=== PATIENT | female | born 1985 | race Caucasian/White ===

== ENCOUNTER 2018-09-23 05:51 | Inpatient (IN) | payer BC ==
--- NOTE | 2018-09-20 18:54 | P.HPOB ---
History of Present Illness H&P Date: 09/20/18 Chief Complaint: Repeat section and tubal ligation. This patient is a pleasant 33-year-old 2 para 1 female estimated date of confinement 09/30/2018 estimated gestational age 39 weeks who presents to labor and delivery for elective repeat section and also requesting permanent sterilization. Patient's has been uncomplicated with the exception of large for gestational age. Patient's had a previous section desires repeat. Patient is also requesting permanent sterilization. Review of Systems Genitourinary: Reports Menstruation: Reports amenorrhea Past Medical History Past Medical History: No Reported History History of Any Multi-Drug Resistant Organisms: None Reported Past Surgical History: Section Past Anesthesia/Blood Transfusion Reactions: No Reported Reaction Past Psychological History: No Psychological Hx Reported Smoking Status: Never smoker Past Alcohol Use History: None Reported Past Drug Use History: None Reported Medications and Allergies Home Medications Medication Instructions Recorded Confirmed Type No Known Home Medications 05/16/17 05/16/17 History Allergies Allergy/AdvReac Type Severity Reaction Status Date / Time amoxicillin Allergy Rash/Hives Verified 08/16/18 15:24 sulfamethoxazole Allergy Rash/Hives Verified 08/16/18 15:24 [From Septra] trimethoprim [From Septra] Allergy Rash/Hives Verified 08/16/18 15:24 Exam - OBG Physical Exam Abdomen: bowel sounds normal, no diffuse tenderness, no bruit present, no guarding noted, no hepatomegaly, no splenomegaly, no mass Vulva: both: normal Vagina: normal moisture, no discharge Cervix: no lesion (Cervix in the office is closed.), no discharge Uterus: enlarged (Fundal height 39 cm) Results blood work shows she is O positive, rubella immune, RPR nonreactive, hepatitis B negative, Glucola was normal, group B strep was positive, ultrasounds have been normal the exception of macrosomia. Assessment and Plan Assessment: This is a pleasant 33-year-old 2 para 1 female 39 weeks gestation who is admitted to labor and delivery for elective repeat section and also requesting permanent sterilization. Plan is repeat low transverse section and bilateral partial salpingectomy. Patient I discussed the surgery and risks including risks of infection, bleeding, possible injury bowel, bladder, vessels, and/or other organs. Patient stands the risk of DVT and pulmonary embolism. All the patient's questions are answered and a written consent is obtained. (1) 39 weeks gestation of Status: Acute Code(s): Z3A.39 - 39 WEEKS GESTATION OF SNOMED Code(s): 49804140 (2) Previous delivery affecting Status: Acute Code(s): O34.219 - MATERNAL CARE FOR UNSP TYPE SCAR FROM PREVIOUS DEL SNOMED Code(s): 655366372 (3) Family planning Status: Acute Code(s): Z30.09 - ENCOUNTER FOR OT GENERAL CNSL AND ADVICE ON CONTRACEPTION SNOMED Code(s): 504848674 (4) Group B streptococcal carriage complicating Status: Acute Code(s): O99.820 - STREPTOCOCCUS B CARRIER STATE COMPLICATING SNOMED Code(s): 689740337043915
[2018-09-23] MEDS ORDERED: LACTATED RINGERS 1,000 ML IV SCH (05:56)
[2018-09-23] MEDS ORDERED: CITRIC ACID-SODIUM CITRATE 15 ML CUP PO ONE (05:56)
[2018-09-23] MEDS ORDERED: LACTATED RINGERS 1,000 ML IV ONE (05:56)
[2018-09-23 06:07] VITALS: BMI 37.4
[2018-09-23 06:28] LABS: Basophils # (A) 0.1 k/uL (0-0.2); Basophils % (A) 0 %; Eosinophils # (A) 0.5 k/uL (0-0.7); Eosinophils % (A) 4 %; HGB 11.3 gm/dL (11.4-16.0); Lymphocytes # (A) 2.9 k/uL (1.0-4.8); Lymphocytes % (A) 23 %; MCH 25.8 pg (25.0-35.0); MCHC 32.2 g/dL (31.0-37.0); MCV 80.1 fL (80.0-100.0); Mean Platelet Volume 8.2; Monocytes # (A) 0.6 k/uL (0-1.0); Monocytes % (A) 5 %; Neutrophils # (A) 8.2 k/uL (1.3-7.7); Neutrophils % (A) 66 %; Platelet Count 251 k/uL (150-450); RBC 4.37 m/uL (3.80-5.40); RDW 15.3 % (11.5-15.5); WBC 12.5 k/uL (3.8-10.6)
[2018-09-23] MEDS ORDERED: ceFAZolin IN SWFI 2 GM/20 ML SYRINGE IVP ONE (07:15)
[2018-09-23] MEDS ORDERED: OXYTOCIN 10 UNIT/ML 1 ML VIAL ONE (07:46)
[2018-09-23] MEDS ORDERED: DEXAMETHASONE SOD PHOS (MDV) 100 MG/10 ML VIAL ONE (07:46)
[2018-09-23] MEDS ORDERED: MORPHINE SULFATE (PF) 0.3 MG/0.3 ML SYR ONE (07:46)
[2018-09-23] MEDS ORDERED: LACTATED RINGERS 1,000 ML BAG IV ONE (07:46)
[2018-09-23] MEDS ORDERED: KETOROLAC 30 MG/ML 1 ML VIAL ONE (07:46)
[2018-09-23] MEDS ORDERED: PHENYLEPHRINE-0.9% NACL SYG 1 MG/10 ML SYRINGE ONE (07:46)
[2018-09-23] MEDS ORDERED: ONDANSETRON 4 MG/2 ML VIAL ONE (07:46)
[2018-09-23] MEDS ORDERED: SIMETHICONE 80 MG CHEWABLE PO PRN (08:41)
[2018-09-23] MEDS ORDERED: KETOROLAC 30 MG/ML 1 ML VIAL IVP PRN (08:41)
[2018-09-23] MEDS ORDERED: OXYTOCIN 20 UNITS/1000 ML NS 1,000 ML IV SCH (08:41)
[2018-09-23] MEDS ORDERED: ZOLPIDEM 5 MG TAB PO PRN (08:41)
[2018-09-23] MEDS ORDERED: LANOLIN CREAM 5 GM TUBE TOPICAL PRN (08:41)
[2018-09-23] MEDS ORDERED: METOCLOPRAMIDE 5 MG/ML 2 ML VIAL IVP PRN (08:41)
[2018-09-23] MEDS ORDERED: ONDANSETRON 4 MG/2 ML VIAL IVP PRN (08:41)
[2018-09-23] MEDS ORDERED: diphenhydrAMINE 50 MG/ML 1 ML VIAL IVP PRN (08:41)
[2018-09-23] MEDS ORDERED: NALOXONE 0.4 MG/ML 1 ML VIAL IV PRN (08:41)
[2018-09-23] MEDS ORDERED: diphenhydrAMINE 25 MG CAP PO PRN (08:41)
[2018-09-23] MEDS ORDERED: HYDROcodone/APAP 5-325MG 1 EACH TAB PO PRN (08:41)
--- NOTE | 2018-09-23 08:48 | P.OP ---
Date of Procedure: 09/23/18 Preoperative Diagnosis: #1: 39-0/7 week . #2: Previous section desires repeat. #3: Multi parity desires permanent sterilization Postoperative Diagnosis: Same Procedure(s) Performed: Repeat low transverse section and bilateral partial salpingectomy. Anesthesia: spinal Surgeon: Montez Shane Dungeon Master #1: Rachell Gee Estimated Blood Loss (ml): 1,000 Pathology: other (Bilateral fallopian tube segments) Condition: stable Disposition: floor Indications for Procedure: Please see dictated H&P for intimate details of this patient's admission. Brief summary this is a pleasant 33-year-old 2 para 1 female 39-0/7 weeks gestation who is admitted to labor and delivery for elective repeat section and permanent sterilization. Patient understands that a tubal ligation is considered permanent although there is a failure rate of approximately 5 per thousand procedures done. She understands if she does become she is a 50% chance of a tubal or ectopic . She also understands surgery itself and apparently has risks including risks of infection, bleeding, possible injury bowel, bladder, vessels, and/or other organs.. All the patient's questions are answered written consent is obtained. Operative Findings: This is a vigorous viable male Apgars 9 and 9 delivery time is 0810 hours. Infant has spontaneous respirations and good cry and grossly appeared normal Description of Procedure: This patient had a Odonnell catheter placed to straight drain. She subsequently taken to the operating room where she sat up and spinal anesthetic is administered without incident. With an adequate level of anesthesia she has abdominal prep and drape. Scalpels and taken the previous Pfannenstiel incision is incised. A second scalpel is taken down to the fascia and the fascia is scored with a knife. Fascial incision extended bilaterally using the Plaza scissors. Fascia is then dissected bilaterally. Is then dissected off the rectus muscles sharply. The rectus muscles are and the peritoneum identified and entered sharply. Perineal incision extended superior and inferior without difficulty. Bladder blade is then placed. Bladder peritoneum was then taken off the lower uterine segment. Scalpels then taken and a low transverse uterine incision is made. Using a hemostat I enter the uterine cavity bluntly and there is loss of clear fluid. This incision is extended bluntly the infant is delivered with fundal pressure through the incision. Mouth and nares are bulb suctioned. There is no evidence of a nuchal cord but there is a hand presentation. With gentle fundal pressure we then deliver the rest this infant's body. This is a vigorous viable male Apgars 9 and 9 delivery time is 0810 hours. After delivery of the the umbilical cord is doubly clamped and cut. Cord blood is obtained. The placenta is then manually extracted intact. Uterus is then externalized uterine incision demarcated with Feliciano clamps. Using 0 Vicryl suture in a running locked fashion the uterine incision is closed using 2 layers. There is some additional bleeding on the left lower corner which is a secured hemostatically with an 0 Vicryl interrupted fashion. Excellent hemostasis is noted. The bladder peritoneum was then closed in 0 Vicryl running fashion. The then turned my attention to the left fallopian tube approximately 4 cm from the cornual insertion a small window made to the mesial salpinx. Using a 2-0 silk I doubly ligate a 1-2 cm segment of the left fallopian tube is excised and handed off to pathology. Cauterization is done of the tubal ends. Turned my attention the right side and using a similar technique portion of the right fallopian tube is excised and cauterized. With this done excess fluid is removed from the abdomen and pelvis. The uterine incision and tubal ends were inspected again and found to be hemostatic and the uterus placed back into the abdomen. Parietal peritoneum was then identified using hemostats. Final inspection of the tubes and uterine incision showed continued hemostasis. The parietal peritoneum was then closed in 0 Vicryl running fashion. Rectus muscle reapproximate 0 Vicryl interrupted fashion. Fascia is then closed using 0 PDS in a running fashion. Fascial incision is intact and hemostatic. Subcutaneous tissues and closed using a 3-0 Vicryl. Skin is and closed using april. All counts are correct 3. There are no complications. Mother and are taken to the birthing suite in satisfactory condition.
[2018-09-23] MEDS: SENNOSIDES-DOCUSATE SODIUM 1 EACH TAB PO SCH ×2 (12:05→22:32)
[2018-09-23] MEDS: LACTATED RINGERS 1,000 ML IV SCH (16:39)
[2018-09-24] MEDS: LACTATED RINGERS 1,000 ML IV SCH (01:00)
--- NOTE | 2018-09-24 05:45 | P.PN ---
Progress Note - Text Progress Note Date: 09/24/18 33 yo female status post . Post-op day #1. Patient received intrathecal Duramorph. Patient was seen today, sitting up in bed no complaints, pain VAS score 0/10, no headache, no itching, no nausea and vomiting. Assessment and plan: Doing well in general no complications from anesthesia.
[2018-09-24 06:07] LABS: Basophils % (A) 0 %; Eosinophils # (A) 0.2 k/uL (0-0.7); Eosinophils % (A) 2 %; HCT 28.1 % (34.0-46.0); Hypochromasia Slight; Lymphocytes # (A) 2.2 k/uL (1.0-4.8); Lymphocytes % (A) 18 %; MCH 26.9 pg (25.0-35.0); MCHC 33.6 g/dL (31.0-37.0); MCV 80.2 fL (80.0-100.0); Mean Platelet Volume 8.5; Monocytes # (A) 0.5 k/uL (0-1.0); Monocytes % (A) 4 %; Neutrophils # (A) 8.9 k/uL (1.3-7.7); Neutrophils % (A) 74 %; Platelet Count 210 k/uL (150-450); RDW 15.5 % (11.5-15.5); WBC 12.1 k/uL (3.8-10.6)
[2018-09-24 06:25] LABS: HGB 9.4 gm/dL (11.4-16.0)
--- NOTE | 2018-09-24 06:31 | P.PNOBGPC ---
Subjective - Subjective Patient reports: Reports appetite normal, Reports voiding normally, Reports pain well controlled, Reports ambulating normally : doing well Objective - Vital Signs Latest vital signs: Vital Signs Temp Pulse Resp BP Pulse Ox 09/24/18 04:00 98 F 70 15 110/60 99 09/24/18 00:00 98 F 71 16 108/62 98 09/23/18 19:58 98.2 F 69 16 122/72 95 09/23/18 16:00 97.7 F 64 16 104/68 09/23/18 12:00 98.0 F 76 16 110/68 98 09/23/18 10:41 98.0 F 78 16 113/63 98 09/23/18 10:11 76 16 106/64 98 09/23/18 09:41 72 16 111/58 98 09/23/18 09:26 74 16 123/61 97 09/23/18 09:11 98.2 F 66 16 112/59 97 09/23/18 08:56 75 16 114/67 98 09/23/18 08:41 98.0 F 74 18 109/50 98 Intake and Output 09/23/18 09/23/18 09/24/18 14:59 22:59 06:59 Output Total 150 1050 Balance -150 -1050 Output: Urine 150 1050 Uretheral (Odonnell) 400 Other: # Voids 2 # Emeses 3 - Exam Lungs: bilateral: normal Chest: Normal S1, Normal S2 Extremities: Present: normal Abdomen: Present: normal appearance, soft. Absent: distention, tenderness Incision: Present: normal, dry, intact Uterus: Present: normal, firm - Labs Labs: Abnormal Lab Results - Last 24 Hours (Table) 09/23/18 09/24/18 Range/Units 06:00 05:40 WBC 12.5 H 12.1 H (3.8-10.6) k/uL RBC 3.50 L (3.80-5.40) m/uL Hgb 11.3 L 9.4 L D (11.4-16.0) gm/dL Hct 28.1 L (34.0-46.0) % Neutrophils # 8.2 H 8.9 H (1.3-7.7) k/uL Assessment and Plan Assessment: Postoperative day #1. Patient is resting without complaints. Vital signs are stable she's afebrile. Uterus is firm nontender and her incision is intact and dry. Hemoglobin today is 9.4 which shows an appropriate change from her preoperative hemoglobin. Plan today is to continue regular diet, encourage ambulation, allow the patient to shower, and continue routine postoperative care. (1) 39 weeks gestation of Current Visit: No Status: Acute Code(s): Z3A.39 - 39 WEEKS GESTATION OF SNOMED Code(s): 36395713 (2) Previous delivery affecting Current Visit: No Status: Acute Code(s): O34.219 - MATERNAL CARE FOR UNSP TYPE SCAR FROM PREVIOUS DEL SNOMED Code(s): 775144955 (3) Family planning Current Visit: No Status: Acute Code(s): Z30.09 - ENCOUNTER FOR OTH GENERAL CNSL AND ADVICE ON CONTRACEPTION SNOMED Code(s): 644778535 (4) Group B streptococcal carriage complicating Current Visit: No Status: Acute Code(s): O99.820 - STREPTOCOCCUS B CARRIER STATE COMPLICATING SNOMED Code(s): 120773128395675
[2018-09-24] MEDS: SENNOSIDES-DOCUSATE SODIUM 1 EACH TAB PO SCH ×2 (07:53→20:04)
[2018-09-24] MEDS: IBUPROFEN 600 MG TAB PO PRN ×3 (07:53→20:05)
[2018-09-24] MEDS: IRON AG/C/B12/CA/SUC.ACID/STOM 1 EACH TAB PO SCH (10:17)
[2018-09-24] MEDS: ACETAMINOPHEN TAB 325 MG TAB PO PRN (21:56)
[2018-09-25] MEDS: IBUPROFEN 600 MG TAB PO PRN ×2 (01:53→08:23)
[2018-09-25] MEDS: ACETAMINOPHEN TAB 325 MG TAB PO PRN ×2 (04:42→10:15)
--- NOTE | 2018-09-25 06:21 | P.PNOBGPC ---
Subjective - Subjective Patient reports: Reports appetite normal, Reports voiding normally, Reports pain well controlled, Reports ambulating normally : doing well Objective - Vital Signs Latest vital signs: Vital Signs Temp Pulse Resp BP Pulse Ox 09/25/18 00:00 98.2 F 86 15 109/57 98 09/24/18 15:40 98.2 F 84 50 H 116/88 95 09/24/18 08:00 98.2 F 78 16 112/72 99 - Exam Lungs: bilateral: normal Chest: Normal S1, Normal S2 Extremities: Present: normal Abdomen: Present: normal appearance, soft. Absent: distention, tenderness Incision: Present: normal, dry, intact Uterus: Present: normal, firm - Labs Labs: Abnormal Lab Results - Last 24 Hours (Table) 09/24/18 Range/Units 05:40 WBC 12.1 H (3.8-10.6) k/uL RBC 3.50 L (3.80-5.40) m/uL Hgb 9.4 L D (11.4-16.0) gm/dL Hct 28.1 L (34.0-46.0) % Neutrophils # 8.9 H (1.3-7.7) k/uL Assessment and Plan Assessment: Post day #2. Patient is resting without complaints and wishes to go home. Vital signs are stable she's afebrile. Uterus is firm nontender and her incision is intact and dry. Patient is tolerating regular diet, urinating, ambulating without difficulty. Plan today is to continue routine postoperative care discharge home later today. (1) 39 weeks gestation of Current Visit: No Status: Acute Code(s): Z3A.39 - 39 WEEKS GESTATION OF SNOMED Code(s): 38035085 (2) Previous delivery affecting Current Visit: No Status: Acute Code(s): O34.219 - MATERNAL CARE FOR UNSP TYPE SCAR FROM PREVIOUS DEL SNOMED Code(s): 592610923 (3) Family planning Current Visit: No Status: Acute Code(s): Z30.09 - ENCOUNTER FOR OTH GENERAL CNSL AND ADVICE ON CONTRACEPTION SNOMED Code(s): 122395236 (4) Group B streptococcal carriage complicating Current Visit: No Status: Acute Code(s): O99.820 - STREPTOCOCCUS B CARRIER STATE COMPLICATING SNOMED Code(s): 326619198101758
--- NOTE | 2018-09-25 06:26 | P.DS ---
Providers Date of admission: 09/23/18 05:51 Expected date of discharge: 09/25/18 Attending physician: Montez Shane Primary care physician: Poncho Haynes - Discharge Diagnosis(es) (1) 39 weeks gestation of Current Visit: No Status: Acute (2) Previous delivery affecting Current Visit: No Status: Acute (3) Family planning Current Visit: No Status: Acute (4) Group B streptococcal carriage complicating Current Visit: No Status: Acute Hospital Course: Please see dictated H&P for intimate details of this patient's admission. Brief summary this pleasant 33-year-old 2 para 1 female 39 weeks gestation admitted to labor and delivery for elective repeat section and tubal ligation. Patient is admitted undergoes repeat section and tubal ligation. Please see dictated delivery note. Postoperative day #2 patient's felt be stable for discharge home follow up with me in 1 week. Procedures: Repeat low transverse section and bilateral partial salpingectomy Patient Condition at Discharge: Good Plan - Discharge Summary New Discharge Prescriptions: New Ibuprofen [Motrin] 600 mg PO Q6HR PRN #40 tab PRN Reason: Mild Pain Or Fever >= 100.5 Iron Ag/C/B12/Ca/Suc.acid/Stom [Multigen] 1 each PO DAILY #30 tab No Action Doxylamine Succinate [Unisom] 1 tab PO ONCE Pnv No.95/Ferrous Fum/Folic AC [ Multivitamin Tablet] 1 tab PO ONCE Pyridoxine [Vitamin B-6] 1 tab PO ONCE Discharge Medication List Doxylamine Succinate [Unisom] 1 tab PO ONCE 09/23/18 [History] Pnv No.95/Ferrous Fum/Folic AC [ Multivitamin Tablet] 1 tab PO ONCE 09/23/18 [History] Pyridoxine [Vitamin B-6] 1 tab PO ONCE 09/23/18 [History] Ibuprofen [Motrin] 600 mg PO Q6HR PRN #40 tab 09/25/18 [Rx] Iron Ag/C/B12/Ca/Suc.acid/Stom [Multigen] 1 each PO DAILY #30 tab 09/25/18 [Rx] Follow up Appointment(s)/Referral(s): Montez Shane MD [STAFF PHYSICIAN] - 10/02/18 8:30 am (Patient also has a visit on November 07 at 11:15 AM.) Patient Instructions/Handouts: (DC) Activity/Diet/Wound Care/Special Instructions: No heavy lifting or strenuous activity for 6 weeks. No intercourse or anything per vagina for 6 weeks. Please call if any fever, chills, excessive vaginal bleeding, and/or abdominal pain. Discharge Disposition: HOME SELF-CARE
[2018-09-25] MEDS: SENNOSIDES-DOCUSATE SODIUM 1 EACH TAB PO SCH (08:24)
[2018-09-25 08:27] VITALS: BP 116/71; PULSE 85; RESP 16; TEMP 98
[2018-09-25] MEDS: IRON AG/C/B12/CA/SUC.ACID/STOM 1 EACH TAB PO SCH (10:08)
== END 2018-09-25 12:00 | disposition home or self-care (01) | DRG 785 ==
LOC: 4FBP 05:51 → MERGE 08:00
PROVIDERS: ADMIT Obstetrics & Gynecology; ATTEND Obstetrics & Gynecology
PROC: 0UB70ZZ Excision of Bilateral Fallopian Tubes, Open Approach (ICD-10-PCS; 2018-09-23)
PROC: 10D00Z1 Extraction of Products of Conception, Low, Open Approach (ICD-10-PCS; principal; 2018-09-23 08:00)
DX: O34.211 Maternal care for low transverse scar from previous cesarean delivery (principal); O36.63X0 Maternal care for excessive fetal growth, third trimester, not applicable or unspecified; O99.824 Streptococcus B carrier state complicating childbirth; Z37.0 Single live birth; Z3A.39 39 weeks gestation of pregnancy; Z88.1 Allergy status to other antibiotic agents; Z88.0 Allergy status to penicillin; Z30.2 Encounter for sterilization
CPT/HCPCS: 85025; 86850; 86900; 86901; 88302